=== PATIENT | female | born 2000 | race American Indian/Alaskan Native ===

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

== ENCOUNTER 2020-07-30 01:02 | Emergency (ER) | payer OTHER ==
[2020-07-30 02:12] VITALS: BP 150/89
--- NOTE | 2020-07-30 03:22 | Ultrasound Report ---
PELVIC ULTRASOUND INDICATION: Possible early , vaginal bleeding, report from patient of notification of pregna ncy 3 weeks ago, said to be 5 weeks per ultrasound COMPARISON: None TECHNIQUE: Transabdominal FINDINGS: Uterus measures 7.8 x 4.8 x 5.5 cm. Endometrial stripe measures 10 mm. No fluid or sac are seen within the endometrial. No uterine abnormalities are seen. Right ovary measures 2.9 cm in length and the left ovary is not visualized. No adnexal masses are see n. No free fluid is noted. IMPRESSION: No intrauterine is identified. Ectopic cannot be excluded though I do not see evidence of that process. Clinical correlation and follow-up are needed. Signer Name: Cheng Nava MD Signed: 07/30/2020 3:17 AM Workstation Name: [id number]
[2020-07-30 03:37] LABS: Basophils % (Auto) 0.3 % (0.0-1.8); Eosinophils % (Auto) 0.2 % (0.0-4.3); Hematocrit 35.4 % (30.3-42.9); Lymphocytes # (Auto) 1.3 K/mm3 (1.2-5.4); Mean Corpuscular HGB Conc 34 % (30-34); Mean Corpuscular Volume 80 fl (79-97); Monocytes # (Auto) 0.7 K/mm3 (0.0-0.8); Monocytes % (Auto) 4.1 % (0.0-7.3); Platelet Count 237 K/mm3 (140-440); Red Blood Count 4.46 M/mm3 (3.65-5.03)
[2020-07-30 03:39] LABS: Bacteria,Urine 4+ /HPF (Negative); Bilirubin,Urine NEG (Negative); Blood,Urine LG (Negative); Color,Urine Yellow (Yellow); Mucus,Urine 2+ /HPF; Urobilinogen,Urine < 2.0 mg/dL (<2.0)
[2020-07-30 03:40] LABS: RBC,Urine > 182.0 /HPF (0.0-6.0)
--- NOTE | 2020-07-30 05:20 | Emergency Department Report ---
ED Female HPI - General Chief complaint: Vaginal Bleeding Stated complaint: VAGINAL BLEEDING Time Seen by Provider: 07/30/20 04:41 Source: patient Mode of arrival: Ambulatory Limitations: No Limitations - History of Present Illness Initial comments: 20-year-old obese female resents emerged department complaining with mild bleeding spotting going on for about a week and and the emergence of heavy bleeding tonight which triggered her visit to the emergency department she reports of almost menstrual style bleeding with some very mild cramping for short period time prior to her visit to the emergency department. Reports no fever, chills, sweats no chest pain no palpitation no nausea no vomiting no trauma no suspicion for STD MD Complaint: vaginal bleeding, pelvic pain Severity: moderate Quality: dull Consistency: constant Improves with: none Worsens with: none Are you Now?: Yes Associated Symptoms: vaginal bleeding. denies: abdominal pain, nausea/vomiting, loss of appetite, rash, shortness of breath, weakness - Related Data Previous Rx's Medication Instructions Recorded Last Taken Type Amoxicillin [Trimox CAP] 500 mg PO Q8H #30 capsule 11/07/17 Unknown Rx Metoclopramide [Reglan] 10 mg PO TID #30 tab 11/07/17 Unknown Rx Prednisone [predniSONE 10 mg 10 mg PO .TAPER #1 tab.ds.pk 11/07/17 Unknown Rx (6-Day Pack, 21 Tabs)] diphenhydrAMINE [Benadryl CAP] 25 mg PO Q8HR PRN #30 capsule 11/07/17 Unknown Rx Nitrofurantoin [place]/M-Cryst 100 mg PO Q12HR #20 capsule 07/30/20 Unknown Rx [Macrobid CAP] Allergies Allergy/AdvReac Type Severity Reaction Status Date / Time No Known Allergies Allergy Unverified 11/07/17 10:05 ED Review of Systems ROS: Stated complaint: VAGINAL BLEEDING Other details as noted in HPI Comment: All other systems reviewed and negative ED Past Medical Hx - Past Medical History Previous Medical History?: Yes Additional medical history: Obesity - Surgical History Past Surgical History?: No - Social History Smoking Status: Never Smoker Substance Use Type: None - Medications Home Medications: Home Medications Medication Instructions Recorded Confirmed Last Taken Type Amoxicillin [Trimox CAP] 500 mg PO Q8H #30 capsule 11/07/17 Unknown Rx Metoclopramide [Reglan] 10 mg PO TID #30 tab 11/07/17 Unknown Rx Prednisone [predniSONE 10 mg 10 mg PO .TAPER #1 tab.ds.pk 11/07/17 Unknown Rx (6-Day Pack, 21 Tabs)] diphenhydrAMINE [Benadryl CAP] 25 mg PO Q8HR PRN #30 capsule 11/07/17 Unknown Rx Nitrofurantoin [place]/M-Cryst 100 mg PO Q12HR #20 capsule 07/30/20 Unknown Rx [Macrobid CAP] ED Physical Exam - General Limitations: No Limitations General appearance: alert, in no apparent distress - Head Head exam: Present: atraumatic, normocephalic - Eye Eye exam: Present: normal appearance, PERRL, EOMI Pupils: Present: normal accommodation - ENT ENT exam: Present: normal exam, normal orophraynx, mucous membranes moist, TM's normal bilaterally - Neck Neck exam: Present: normal inspection, full ROM - Respiratory Respiratory exam: Present: normal lung sounds bilaterally. Absent: respiratory distress, wheezes, rales, rhonchi, chest wall tenderness, accessory muscle use - Cardiovascular Cardiovascular Exam: Present: regular rate, normal rhythm. Absent: systolic murmur, diastolic murmur, rubs, gallop - GI/Abdominal GI/Abdominal exam: Present: soft, tenderness (Suprapubic discomfort with deep palpation.), normal bowel sounds. Absent: guarding, rebound, hypoactive bowel sounds, organomegaly, mass, bruit, pulsatile mass - Extremities Exam Extremities exam: Present: normal inspection, normal capillary refill - Back Exam Back exam: Present: normal inspection - Neurological Exam Neurological exam: Present: alert, oriented X3, CN II-XII intact - Psychiatric Psychiatric exam: Present: normal affect, normal mood - Skin Skin exam: Present: warm, dry, intact, normal color. Absent: rash ED Course Vital Signs 07/30/20 02:05 Temperature 98.1 F Pulse Rate 115 H Respiratory 20 Rate Blood Pressure 150/89 O2 Sat by Pulse 96 Oximetry ED Medical Decision Making - Lab Data Result diagrams: 07/30/20 02:44 - Radiology Data Radiology results: report reviewed [facility] [address] [place] [address] Ultrasound Report Signed Patient: ASAF AGUILAR MR#: [id number] : 2000 Acct:[id number] Age/Sex: 20 / F ADM Date: 07/30/20 Loc: ED Attending Dr: Ordering Physician: CHING FLETCHER MD Date of Service: 07/30/20 Procedure(s): US OB <= 14 weeks fetus Accession Number(s): [id number] cc: CHING FLETCHER MD PELVIC ULTRASOUND INDICATION: Possible early , vaginal bleeding, report from patient of notification of 3 weeks ago, said to be 5 weeks per ultrasound COMPARISON: None TECHNIQUE: Transabdominal FINDINGS: Uterus measures 7.8 x 4.8 x 5.5 cm. Endometrial stripe measures 10 mm. No fluid or sac are seen within the endometrial. No uterine abnormalities are seen. Right ovary measures 2.9 cm in length and the left ovary is not visualized. No adnexal masses are seen. No free fluid is noted. IMPRESSION: No intrauterine is identified. Ectopic cannot be excluded though I do not see evidence of that process. Clinical correlation and follow-up are needed. Signer Name: Cheng Nava MD Signed: 07/30/2020 3:17 AM Workstation Name: [email or web address] Transcribed By: CORBIN Dictated By: Cheng Nava MD Electronically Authenticated By: Cheng Nava MD Signed Date/Time: 07/30/20316 DD/ 3 TD/TT: - Medical Decision Making this patient presents with vaginal bleeding in the first trimester, differential diagnosis includes ectopic , IUP, month threatened/inevitable , along with a completed . Patient is HDS and without a history of coagulopathy or infectious symptoms. The ultrasound does not reveal an IUP at at this present time however there is an elevated hCG quant Based on exam history and ED work-up patient presentation is not consistent with an ectopic , life-threatening coagulopathy, trauma, serious bacterial infection, central process or other emergency Critical care attestation.: If time is entered above; I have spent that time in minutes in the direct care of this critically ill patient, excluding procedure time. ED Disposition Clinical Impression: UTI (urinary tract infection), Threatened miscarriage in early Disposition: DC-01 TO HOME OR SELFCARE Is pt being admited?: No Does the pt Need Aspirin: No Condition: Stable Instructions: Threatened Miscarriage, Vaginal Bleeding During , First Trimester, Urinary Tract Infection, Adult, [id number], and Urinary Tract Infection Additional Instructions: Please sure to follow-up with your [facility] to get your hCG hormone level reevaluated to ensure it is still increasing. Prescriptions: Nitrofurantoin [place]/M-Cryst [Macrobid CAP] 100 mg PO Q12HR #20 capsule Referrals: [facility] [Provider Group] - 3-5 Days
== END 2020-07-30 06:28 | disposition home or self-care (01) ==
LOC: ED 01:02
DX: O20.0 Threatened abortion (principal); O23.41 Unspecified infection of urinary tract in pregnancy, first trimester; Z3A.01 Less than 8 weeks gestation of pregnancy; Z79.2 Long term (current) use of antibiotics; Z79.899 Other long term (current) drug therapy
CPT/HCPCS: 36415; 76801; 81001; 84702; 85025; 86900; 86901; 87076; 87086; 87186